=== PATIENT | female | born 1970 | race African-American/Black ===

== ENCOUNTER 2023-09-22 04:04 | Day surgery (SDC) | payer BC, OTHER ==
[2023-09-21 11:01] VITALS: BMI 39.5
[2023-09-22] MEDS ORDERED: BUPIVACAINE HCL/PF 0.5% (5MG/ML) 10 ML VIAL ONE (07:09)
[2023-09-22] MEDS ORDERED: LIDOCAINE 1%/EPI 1:100000 (20 ML MULTI DOSE VIAL) ONE (07:09)
[2023-09-22] MEDS ORDERED: MIDAZOLAM HCL 2 MG/2 ML SINGLE DOSE VIAL ONE (07:42)
[2023-09-22] MEDS ORDERED: FENTANYL CITRATE/PF 50 MCG/ML VIAL ONE ×3 (07:42→09:43)
[2023-09-22] MEDS ORDERED: PROPOFOL 20 ML ONE (07:42)
[2023-09-22] MEDS ORDERED: ONDANSETRON 4 MG/2 ML VIAL ONE (08:26)
[2023-09-22] MEDS ORDERED: ceFAZolin SODIUM 1 GM VIAL ONE (08:26)
[2023-09-22] MEDS ORDERED: DEXAMETHASONE SOD PHOSPHATE 4 MG/1 ML VIAL ONE (08:26)
[2023-09-22] MEDS ORDERED: ceFAZolin SODIUM 1 GM VIAL IVPB ONE (08:34)
[2023-09-22] MEDS ORDERED: KETOROLAC TROMETHAMINE 30 MG/1 ML VIAL ONE (08:45)
[2023-09-22] MEDS ORDERED: BUPIVACAINE HCL 0.5% 250 MG/50 ML VIAL NR ONE (08:50)
[2023-09-22] MEDS ORDERED: ONDANSETRON 4 MG/2 ML VIAL IVPUSH PRN (09:03)
[2023-09-22] MEDS ORDERED: oxyCODONE HCL 5 MG TABLET PO PRN (09:03)
[2023-09-22] MEDS ORDERED: LACTATED RINGERS SOLUTION 1,000 ML IV SCH (09:15)
[2023-09-22 09:22] VITALS: RESP 18
[2023-09-22 12:27] VITALS: BP 120/68; PULSE 68; TEMP 97.2
== END 2023-09-22 12:05 | disposition home or self-care (01) ==
LOC: JASU-SURG 04:04
PROVIDERS: ATTEND Orthopaedic Surgery
PROC: 0SBC4ZZ Excision of Right Knee Joint, Percutaneous Endoscopic Approach (ICD-10-PCS; principal; 2023-09-22 08:00)
DX: M17.11 Unilateral primary osteoarthritis, right knee (principal); M23.203 Derangement of unspecified medial meniscus due to old tear or injury, right knee; M65.861 Other synovitis and tenosynovitis, right lower leg
CPT/HCPCS: 81025; 94760